=== PATIENT | female | born 1990 | race Caucasian/White ===

== ENCOUNTER 2018-09-12 12:05 | Outpatient (CLI) | payer MEDICAID ==
[2018-09-12] MEDS: LACTATED RINGER'S 1,000 ML IV ×2 (12:49→15:45)
== END 2018-09-12 17:35 | disposition home or self-care (01) ==
LOC: OBT 12:05 → L-D 12:06 → OBT 17:35
DX: O41.03X0 Oligohydramnios, third trimester, not applicable or unspecified (principal); Z3A.36 36 weeks gestation of pregnancy
CPT/HCPCS: 36415; 76818; 96360; 96361

== ENCOUNTER 2018-09-15 13:36 | Outpatient (CLI) | payer MEDICAID | END 2018-09-15 14:28 | disposition home or self-care (01) | LOC: OBT 13:36 → L-D 13:37 → OBT 14:28 | DX: O62.9 Abnormality of forces of labor, unspecified (principal); Z3A.37 37 weeks gestation of pregnancy ==

== ENCOUNTER 2018-09-24 00:30 | Inpatient (IN) | payer MEDICAID ==
[2018-09-24] MEDS ORDERED: OXYTOCIN 30 UNITS/LR 500 ML IV ×2 (01:30→22:00)
[2018-09-24] MEDS ORDERED: CARBOPROST 250 MCG INJ IM ×2 (01:30→22:00)
[2018-09-24] MEDS ORDERED: METHYLERGONOVINE 0.2 MG INJ IM ×2 (01:30→22:00)
[2018-09-24] MEDS ORDERED: MISOPROSTOL 200 MCG TAB PR ×2 (01:30→22:00)
[2018-09-24 02:17] LABS: ADD MAN DIFF? NO
[2018-09-24 02:32] LABS: WHITE BLOOD COUNT 9.8 10^3/ul (4.8-10.8)
[2018-09-24 02:32] LABS: BASOPHILS % 0.3 % (0.0-2.0); EOSINOPHILS # 0.1 10^3/ul (0.0-0.5); EOSINOPHILS % 0.5 % (0.0-7.0); HEMATOCRIT 41.5 % (37.0-47.0); HEMOGLOBIN 13.9 g/dl (12.0-16.0); LYMPHOCYTES # 2.1 10^3/ul (0.8-2.9); LYMPHOCYTES % 21.2 % (15.0-51.0); MEAN CORPUSCULAR HEMOGLOBIN 30.8 pg (29.0-33.0); MEAN CORPUSCULAR HGB CONC 33.5 g/dl (32.0-37.0); MEAN CORPUSCULAR VOLUME 91.8 fl (82.0-101.0); MEAN PLATELET VOLUME 12.7 fl (7.4-10.4); MONOCYTE # 0.9 10^3/ul (0.3-0.9); MONOCYTES % 8.7 % (0.0-11.0); NEUTROPHIL # 6.8 10^3/ul (1.6-7.5); PLATELET COUNT 243 10^3/UL (140-415); RED BLOOD COUNT 4.52 10^6/ul (4.20-5.40); RED CELL DISTRIBUTION WIDTH 13.1 % (11.5-14.5)
[2018-09-24 02:53] LABS: INR 0.97
[2018-09-24 02:54] LABS: PARTIAL THROMBOPLASTIN TIME 33.2 Sec (23.0-35.0)
[2018-09-24] MEDS: LACTATED RINGER'S 1,000 ML IV ×2 (03:12→12:13)
[2018-09-24] MEDS: AMPICILLIN 2 GM/NS (PMX) 100 ML IV (03:12)
[2018-09-24 03:49] LABS: HEPATITIS B SURFACE ANTIGEN NEGATIVE (NEGATIVE)
[2018-09-24] MEDS: AMPICILLIN 1 GM/NS (PMX) 50 ML IVPB ×2 (06:53→12:14)
[2018-09-24] MEDS ORDERED: OXYTOCIN 30 UNITS/LR 500 ML BAG IV (07:00)
[2018-09-24] MEDS ORDERED: PHENYLephrine (100 MCG/ML) 5ML SYG (07:00)
[2018-09-24] MEDS ORDERED: TERBUTALINE 1 ML (12:08)
[2018-09-24] MEDS: TERBUTALINE 1 MG/ML INJ SC (12:21)
[2018-09-24 15:46] LABS: RAPID PLASMA REAGIN NONREACTIVE (NR)
[2018-09-24] MEDS ORDERED: morphine SULFATE/PF (10 MG/10 ML) INJ (16:05)
[2018-09-24] MEDS ORDERED: FENTAnyl 50 MCG/ML VIAL ×2 (16:27→16:31)
[2018-09-24] MEDS ORDERED: HYDROmorphONE 1 MG/5 ML IV SYRINGE IV ×3 (16:30)
[2018-09-24] MEDS ORDERED: METOCLOPRAMIDE 10 MG INJ IV (16:30)
[2018-09-24] MEDS ORDERED: HYDROmorphONE 0.5 MG/0.5 ML SYG IV ×2 (16:30)
[2018-09-24] MEDS ORDERED: NALOXONE (0.4 MG/ML) INJ IV (16:30)
[2018-09-24] MEDS ORDERED: FENTAnyl 50 MCG/ML VIAL IV ×2 (16:30)
[2018-09-24] MEDS ORDERED: ALBUTEROL 0.083% (NEB) 2.5 MG/3 ML AMP HHN (16:30)
[2018-09-24] MEDS ORDERED: ONDANSETRON 4 MG INJ IV ×2 (16:30)
[2018-09-24] MEDS ORDERED: DIPHENHYDRAMINE 50 MG INJ IV ×2 (16:30)
[2018-09-24] MEDS ORDERED: ONDANSETRON 4 MG INJ (16:31)
[2018-09-24] MEDS: KETOROLAC 30 MG INJ IV (18:02)
[2018-09-24] MEDS: CEFAZOLIN 2 GM/50 ML (PMX) 50 ML IVPB (19:27)
[2018-09-24] MEDS: OXYTOCIN 30 UNITS/LR 500 ML IV (19:54)
[2018-09-24] MEDS ORDERED: NACL 0.9% 3 ML SYG IV (22:00)
[2018-09-24] MEDS ORDERED: LANOLIN HPA 1 PKT TOP (22:00)
[2018-09-24] MEDS ORDERED: NA PHOSPHATE/BIPHOS 133 ML ENEMA PR (22:00)
[2018-09-25] MEDS: OXYTOCIN 30 UNITS/LR 500 ML IV (00:16)
[2018-09-25] MEDS: KETOROLAC 30 MG INJ IV ×2 (07:03→12:29)
[2018-09-25] MEDS: LACTATED RINGER'S 1,000 ML IV (10:40)
[2018-09-25 14:41] LABS: ADD MAN DIFF? NO
[2018-09-25 14:43] LABS: BASOPHILS % 0.1 % (0.0-2.0); EOSINOPHILS % 0.3 % (0.0-7.0); HEMATOCRIT 36.1 % (37.0-47.0); HEMOGLOBIN 12.2 g/dl (12.0-16.0); LYMPHOCYTES # 1.1 10^3/ul (0.8-2.9); LYMPHOCYTES % 9.6 % (15.0-51.0); MEAN CORPUSCULAR HEMOGLOBIN 31.1 pg (29.0-33.0); MEAN CORPUSCULAR HGB CONC 33.8 g/dl (32.0-37.0); MEAN CORPUSCULAR VOLUME 92.1 fl (82.0-101.0); MEAN PLATELET VOLUME 11.5 fl (7.4-10.4); MONOCYTE # 1.2 10^3/ul (0.3-0.9); MONOCYTES % 9.9 % (0.0-11.0); NEUTROPHIL # 9.3 10^3/ul (1.6-7.5); NEUTROPHILS % 79.8 % (39.0-77.0); PLATELET COUNT 192 10^3/UL (140-415); RED BLOOD COUNT 3.92 10^6/ul (4.20-5.40); RED CELL DISTRIBUTION WIDTH 13.3 % (11.5-14.5)
[2018-09-25 14:43] LABS: WHITE BLOOD COUNT 11.7 10^3/ul (4.8-10.8)
[2018-09-25] MEDS: HYDROCODONE/APAP (5/325) TAB PO (16:42)
[2018-09-25] MEDS: IBUPROFEN 800 MG TAB PO (22:04)
[2018-09-26] MEDS: IBUPROFEN 800 MG TAB PO ×3 (05:58→22:00)
[2018-09-26] MEDS: HYDROCODONE/APAP (5/325) TAB PO (08:31)
[2018-09-27] MEDS: IBUPROFEN 800 MG TAB PO (05:11)
[2018-09-27] MEDS: MEASLES,MUMPS,RUBELLA VACCINE INJ SC* (09:07)
[2018-09-27] MEDS: DIPHTH/TET/ACEL PERTUSS (ADULT) 0.5 ML VIAL IM* (09:07)
== END 2018-09-27 15:31 | disposition home or self-care (01) | DRG 788 ==
LOC: OBT 00:30 → L-D 00:30 → OBT 01:00 → L-D 01:00 → PP1 21:37
PROVIDERS: Obstetrics & Gynecology
PROC: 10D00Z1 Extraction of Products of Conception, Low, Open Approach (ICD-10-PCS; principal; 2018-09-24)
DX: O34.211 Maternal care for low transverse scar from previous cesarean delivery (principal); O99.214 Obesity complicating childbirth; E66.9 Obesity, unspecified; Z3A.38 38 weeks gestation of pregnancy; Z37.0 Single live birth
CPT/HCPCS: 36415; 85025; 85610; 85730; 86592; 86850; 86900; 86901; 87340; 99464